=== PATIENT | male | born 1980 | race Hispanic/Latino ===

== ENCOUNTER 2020-03-21 21:30 | Emergency (ER) | payer SELFPAY ==
[2020-03-21] MEDS ORDERED: LIDOCAINE HCL-MPF 1% 2ML VIAL ONE ×2 (22:28→22:30)
[2020-03-21] MEDS ORDERED: CEFTRIAXONE SODIUM 500 MG VIAL ONE (22:28)
[2020-03-21] MEDS ORDERED: AZITHROMYCIN 250 MG TABLET PO ONE (22:28)
[2020-03-21] MEDS ORDERED: DOXYCYCLINE HYCLATE 100 MG TABLET PO ONE (22:28)
[2020-03-21 23:34] LABS: APPEARANCE,URINE Clear (CLEAR); BILIRUBIN,URINE Negative (NEGATIVE); COLOR,URINE Yellow (YELLOW); GLUCOSE, URINE (UA) Negative (NEGATIVE); KETONES,URINE Negative (NEGATIVE); LEUKOCYTE ESTERASE ,URINE Negative (NEGATIVE); NITRATE,URINE Negative (NEGATIVE); OCCULT BLOOD,URINE Negative (NEGATIVE); PROTEIN,URINE Negative (NEGATIVE); UROBILINOGEN,URINE 0.2 mg/dL (0.2-1.0)
== END 2020-03-21 23:35 | disposition home or self-care (01) ==
LOC: EDH 21:30
DX: N48.5 Ulcer of penis (principal); Z72.0 Tobacco use
CPT/HCPCS: 81003; 87486; 87797; 96372; 99283; J0696; J3490 ×2